=== PATIENT | male | born 1935 | race Caucasian/White ===

== ENCOUNTER 2022-01-06 12:19 | Observation (INO) ==
[2022-01-06 13:40] LABS: ABS Lymphocytes 0.6 10^3/ul (1.0-4.8); ABS Monocytes 0.4 10^3/ul (0-0.8); ABS Neutrophils 5.1 10^3/ul (1.5-7.7); Eosinophil % 0.3 %; Hematocrit 36 % (42-52); Lymphocyte % 9.6 %; Mean Corpuscular HGB Conc 34 g/dL (31-36); Mean Corpuscular Hemoglobin 32 pg (27-31); Mean Corpuscular Volume 94 fL (80-94); Mean Platelet Volume 8.3 fL (7.4-10.4); Platelet Count 146 10^3/uL (150-450); Red Blood Count 3.77 10^6 /uL (4.18-5.48); Red Cell Distribution Width 14 % (10-15); White Blood Count 6.1 10^3/uL (3.5-10.8)
[2022-01-06 13:50] LABS: Activated Partial Thrombo Time 32.1 seconds (26.0-38.0); INR 1.14 (0.86-1.15)
[2022-01-06 15:10] LABS: Albumin 3.8 g/dL (3.2-5.2); Albumin/Globulin Ratio 1.5 (1-3); Calcium 8.9 mg/dL (8.6-10.3); Globulin 2.5 g/dL (2-4); Magnesium 1.9 mg/dL (1.9-2.7); Potassium 4.4 mmol/L (3.5-5.0); Total Bilirubin 0.5 mg/dL (0.2-1.0); Total Protein 6.3 g/dL (6.4-8.9); eGFR CKD-EPI 85.1 (>60)
[2022-01-06 15:14] LABS: High Sensitivity Troponin 1 Hr 8 pg/mL (<20)
[2022-01-06] MEDS ORDERED: Lorazepam PYXIS KEY PRN (15:28)
[2022-01-06] MEDS ORDERED: LORazepam 2 mg VIAL 1 ml IV PUSH ONE (15:28)
[2022-01-06] MEDS ORDERED: Dextrose 50% Syringe 50 ml 25 GM/50 ML SYRINGE IV PUSH PRN (18:05)
[2022-01-06] MEDS: Enoxaparin 40 MG/0.4 ML SYR SUBCUT SCH (22:00)
[2022-01-07 05:49] LABS: ABS Lymphocytes 0.9 10^3/ul (1.0-4.8); ABS Monocytes 0.4 10^3/ul (0-0.8); ABS Neutrophils 2.2 10^3/ul (1.5-7.7); Eosinophil % 1.3 %; Hematocrit 34 % (42-52); Hemoglobin 11.9 g/dL (14.0-18.0); Lymphocyte % 24.5 %; Mean Corpuscular HGB Conc 35 g/dL (31-36); Mean Corpuscular Hemoglobin 33 pg (27-31); Mean Corpuscular Volume 95 fL (80-94); Mean Platelet Volume 8.2 fL (7.4-10.4); Platelet Count 139 10^3/uL (150-450); Red Blood Count 3.57 10^6 /uL (4.18-5.48); Red Cell Distribution Width 13 % (10-15); White Blood Count 3.6 10^3/uL (3.5-10.8)
[2022-01-07 06:12] LABS: Calcium 8.5 mg/dL (8.6-10.3); HDL Cholesterol 53.3 mg/dL; Potassium 3.9 mmol/L (3.5-5.0); eGFR CKD-EPI 85.8 (>60)
[2022-01-07] MEDS: Cholecalciferol (VIT D3) 1,000 unit TAB PO SCH (09:35)
[2022-01-07] MEDS: Enoxaparin 40 MG/0.4 ML SYR SUBCUT SCH (20:34)
[2022-01-08 06:15] LABS: Hematocrit 36 % (42-52); Hemoglobin 12.3 g/dL (14.0-18.0); Mean Corpuscular HGB Conc 34 g/dL (31-36); Mean Corpuscular Hemoglobin 32 pg (27-31); Mean Corpuscular Volume 94 fL (80-94); Mean Platelet Volume 7.9 fL (7.4-10.4); Platelet Count 149 10^3/uL (150-450); Red Blood Count 3.87 10^6 /uL (4.18-5.48); Red Cell Distribution Width 14 % (10-15); White Blood Count 3.8 10^3/uL (3.5-10.8)
[2022-01-08 06:39] LABS: Calcium 8.6 mg/dL (8.6-10.3); Magnesium 1.7 mg/dL (1.9-2.7); Potassium 4.1 mmol/L (3.5-5.0); eGFR CKD-EPI 84.2 (>60)
[2022-01-08 06:50] LABS: TSH Ultra Thyroid Stim Horm 4.8 mcIU/mL (0.34-5.60)
[2022-01-08] MEDS ORDERED: Magnesium Sulfate 2 gm BAG 2 GM/50 ML BAG IVPB ONE (07:36)
[2022-01-08] MEDS: Cholecalciferol (VIT D3) 1,000 unit TAB PO SCH (09:15)
[2022-01-08] MEDS ORDERED: Magnesium Sulfate 1 GM IV 1 GM/100 ML BAG IV ONE (09:45)
[2022-01-08] MEDS: Enoxaparin 40 MG/0.4 ML SYR SUBCUT SCH (21:07)
[2022-01-09 06:16] LABS: Hematocrit 35 % (42-52); Mean Corpuscular HGB Conc 35 g/dL (31-36); Mean Corpuscular Hemoglobin 32 pg (27-31); Mean Corpuscular Volume 93 fL (80-94); Mean Platelet Volume 8.1 fL (7.4-10.4); Platelet Count 153 10^3/uL (150-450); Red Blood Count 3.72 10^6 /uL (4.18-5.48); Red Cell Distribution Width 13 % (10-15); White Blood Count 4.2 10^3/uL (3.5-10.8)
[2022-01-09 06:33] LABS: Calcium 8.7 mg/dL (8.6-10.3); Magnesium 1.9 mg/dL (1.9-2.7); Potassium 4.2 mmol/L (3.5-5.0); eGFR CKD-EPI 85.4 (>60)
[2022-01-09] MEDS: Cholecalciferol (VIT D3) 1,000 unit TAB PO SCH (09:35)
[2022-01-09 11:53] VITALS: BP 137/52
[2022-01-12 17:23] LABS: Albumin/Globulin Ratio 0.96; Gamma Globulin 1.1 g/dL (0.6-1.6); Total Protein(PEP) 6.1 g/dL (6.3 - 7.9)
[2022-01-14 07:29] LABS: Flag, M-protein Isotype Positive (Negative)
== END 2022-01-09 13:00 | disposition home or self-care (01) ==
LOC: EDHOLD 12:19 → ED 12:19 → SUATTDRO 18:47 → MEDTELE 20:32
PROVIDERS: ADMIT Internal Medicine; ATTEND Internal Medicine